=== PATIENT | male | born 1990 | race Caucasian/White ===

== ENCOUNTER 2023-06-29 14:01 | Emergency (ER) | payer BC, SELFPAY ==
[2023-06-29 14:08] VITALS: BP 139/79; PULSE 85; RESP 14; TEMP 37.5; O2SAT 94
[2023-06-29] MEDS: Ibuprofen 600 MG TAB PO (14:22)
[2023-06-29] MEDS: Lidocaine/Epinephri/Tetracaine Topical Gel 3 ML TP (14:23)
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
== END 2023-06-29 15:09 | disposition home or self-care (01) ==
PROVIDERS: Emergency Provider Emergency Medicine
DX: S81.811A Laceration without foreign body, right lower leg, initial encounter (principal); W20.8XXA Other cause of strike by thrown, projected or falling object, initial encounter
CPT/HCPCS: 12001